=== PATIENT | female | born 1955 | race American Indian/Alaskan Native ===

== ENCOUNTER 2016-10-11 09:12 | Outpatient (CLI) | payer MEDICARE ==
--- NOTE | 2016-10-11 11:43 | Cat Scan Report ---
CT CHEST WITHOUT CONTRAST HISTORY: Pulmonary nodule. TECHNIQUE: Helical CT with sagittal and coronal reformatted images. FINDINGS: The 8mm soft tissue density nodule in the lateral right lower lobe is unchanged since the CT chest dated 10/11/[address] dated 09/03/14. Otherwise, the lung parenchyma is normal. No interstitial or air space lung disease is appreciated. The tracheobronchial tree and esophagus are unremarkable. The heart and pericardium are normal size and attenuation. There are moderate calcifications in the thoracic aorta but no evidence for aneurysm or findings associated with dissection. The thoracic cage is intact. IMPRESSION: No change in the 8mm right lower lobe nodule. This nodule is unchanged over the past 2 years consistent with a benign nodule.
== END 2016-10-11 09:13 | disposition home or self-care (01) ==
LOC: CT 09:12
PROVIDERS: ATTEND Specialist
DX: R91.1 Solitary pulmonary nodule (principal); I70.0 Atherosclerosis of aorta; Z85.3 Personal history of malignant neoplasm of breast
CPT/HCPCS: 71250